=== PATIENT | female | born 1975 | race Caucasian/White ===

== ENCOUNTER 2016-11-29 23:12 | Emergency (ER) | payer OTHER ==
[~2016-11-29] VITALS: Ht 154.9 cm; Wt 96.3 kg
[2016-11-29 23:33] VITALS: BP 153/93
--- NOTE | 2016-11-30 00:37 | NUR ---
PT TAKEN TO BED 3
--- NOTE | 2016-11-30 00:40 | NUR ---
PATIENT PRESENTS TO ED WITH C/O LEFT FOOT PAIN . PT DENIES N/V/D; SKIN IS PINK/WARM/DRY; AAOX4 WITH EVEN AND STEADY GAIT; LUNGS CLEAR BL; HR EVEN AND REGULAR; PT DENIES ANY FEVER, CP, SOB, OR COUGH AT THIS TIME; PATIENT STATES PAIN OF 5/10 AT THIS TIME; VSS; PATIENT POSITIONED FOR COMFORT; HOB ELEVATED; BEDRAILS UP X2; BED DOWN. ER MD MADE AWARE OF PT STATUS.
--- NOTE | 2016-11-30 00:40 | NUR ---
Note undone in EDM - 11/30/16 at 0129 by ZULY PATIENT PRESENTS TO ED WITH C/O LEFT FOOT PAIN . PT N/V/D; SKIN IS PINK/WARM/DRY; AAOX4 WITH EVEN AND STEADY GAIT; LUNGS CLEAR BL; HR EVEN AND REGULAR; PT DENIES ANY FEVER, CP, SOB, OR COUGH AT THIS TIME; PATIENT STATES PAIN OF 5/10 AT THIS TIME; VSS; PATIENT POSITIONED FOR COMFORT; HOB ELEVATED; BEDRAILS UP X2; BED DOWN. ER MD MADE AWARE OF PT STATUS.
--- NOTE | 2016-11-30 01:09 | NUR ---
Dr. Pike evaluating patient at bedside.
[2016-11-30] MEDS ORDERED: IBUPROFEN 800 MG TAB PO ONE (01:20)
[2016-11-30 01:45] VITALS: BP 142/87
== END 2016-11-30 01:45 | disposition home or self-care (01) ==
LOC: MED 23:12
DX: S93.492A Sprain of other ligament of left ankle, initial encounter (principal); X83.8XXA Intentional self-harm by other specified means, initial encounter; Y93.89 Activity, other specified; Y92.89 Other specified places as the place of occurrence of the external cause; Y99.8 Other external cause status
CPT/HCPCS: 73610; 90471; 90715; 99284

== ENCOUNTER 2017-11-01 02:33 | Inpatient (IN) | payer BC, OTHER ==
[~2017-11-01] VITALS: Ht 165.1 cm; Wt 99.8 kg
[2017-11-01 02:34] VITALS: BP 136/84
--- NOTE | 2017-11-01 02:40 | NUR ---
PT TAKEN TO BED 12
--- NOTE | 2017-11-01 02:41 | NUR ---
PATIENT PRESENTS TO ED WITH VOMITING X45 DAYS. SKIN IS PINK/WARM/DRY; AAOX4 WITH EVEN AND STEADY GAIT; LUNGS CLEAR BL; HR EVEN AND REGULAR; PT DENIES ANY FEVER, CP, SOB, OR COUGH AT THIS TIME; PATIENT STATES PAIN OF 0/10 AT THIS TIME; VSS; PATIENT POSITIONED FOR COMFORT; HOB ELEVATED; BEDRAILS UP X1; BED DOWN. ER MD MADE AWARE OF PT STATUS.
--- NOTE | 2017-11-01 02:54 | NUR ---
Dr. Pike evaluating patient.
[2017-11-01] MEDS ORDERED: NACL 0.9% 1,000 ML IV ONE (03:00)
[2017-11-01] MEDS ORDERED: ONDANSETRON 4 MG/2 ML VIAL IVP ONE (03:00)
[2017-11-01 03:25] LABS: BASOPHILS # (AUTO) 0.1 K/uL (0.00-0.22); BASOPHILS % (AUTO) 0.9 % (0.0-2.0); EOSINOPHILS # (AUTO) 0.3 K/uL (0-0.4); EOSINOPHILS % (AUTO) 3.4 % (0.0-4.0); HEMATOCRIT 36.3 % (36-48); HEMOGLOBIN 11.6 g/dL (12.0-16.0); LYMPHOCYTES # (AUTO) 3.7 K/uL (2.5-16.5); LYMPHOCYTES % (AUTO) 36.2 % (20.5-51.1); MEAN CORPUSCULAR HEMOGLOBIN 25 pg (27-31); MEAN CORPUSCULAR HGB CONC 32 g/dL (33-37); MEAN CORPUSCULAR VOLUME 78.6 fL (80-94); MONOCYTES % (AUTO) 9.7 % (1.7-9.3); NEUTROPHILS # (AUTO) 5.1 K/uL (1.8-7.7); NEUTROPHILS % (AUTO) 49.8 % (42.2-75.2); PLATELET COUNT (AUTO) 339 K/uL (140-450); RED BLOOD CELL COUNT(AUTO) 4.61 MIL/uL (4.20-5.40); RED CELL DISTRIBUTION WIDTH 14.6 % (11.6-13.7); WHITE BLOOD COUNT (AUTO) 10.2 K/uL (4.8-10.8)
[2017-11-01 03:37] LABS: ALBUMIN 3.1 g/dL (3.4-5.0); ANION GAP 11.3 (8-16); CARBON DIOXIDE 26.5 mmol/L (21-32); CREATININE 0.8 mg/dL (0.6-1.3); TOTAL BILIRUBIN 0.2 mg/dL (0.0-1.0)
[2017-11-01 03:40] LABS: POTASSIUM 2.8 mmol/L (3.5-5.1)
--- NOTE | 2017-11-01 03:47 | NUR ---
PT TAKEN TO CT
[2017-11-01] MEDS ORDERED: POTASSIUM CHLORIDE 10 MEQ TABER PO ONE (03:50)
--- NOTE | 2017-11-01 03:58 | NUR ---
PT RETURN FROM CT
[2017-11-01] MEDS ORDERED: ACETAMINOPHEN 325 MG TAB PO PRN (04:40)
[2017-11-01] MEDS ORDERED: ONDANSETRON 4 MG/2 ML VIAL IVP PRN (04:40)
[2017-11-01] MEDS ORDERED: ORE25 PO (04:44)
[2017-11-01 05:00] VITALS: BP 115/76
--- NOTE | 2017-11-01 05:00 | NUR ---
ADMITTED A 42 F FROM ER. CAME BY HUSSAIN WITH CC OF VOMITING WITH BLOOD X 6WEEKS , AND X1 EPISODE OF BLOOD IN THE STOOL A WEEK AGO. AWAKE,ALERT AND ORIENTED X4. AMBULATORY . WITH IVF INFUSING WELL ON THE LT AC #20. CLEAR AND PATENT. SKIN INTACT . PLAN OF CARE DISCUSSED AND VERBALIZED UNDERSTANDING. ORIENTED TO HOSPITAL ROUTINES. BED ON LOWEST POSITION, CALL LIGHT PLACED WITHIN EASY REACH. WILL CONTINUE TO MONITOR.
--- NOTE | 2017-11-01 05:16 | NUR ---
Pt report given to CADEN BOSS. Transfer of care at this time.
--- NOTE | 2017-11-01 06:40 | NUR ---
PT RESTING IN BED. NO VOMITING NOTED OF THIS TIME.
--- NOTE | 2017-11-01 07:25 | NUR ---
ENDORSED PT IN STABLE CONDITION TO AM NURSE.
--- NOTE | 2017-11-01 07:30 | NUR ---
RECEIVED REPORT FROM HIDE AND SKIN FLESHING MACHINE OPERATOR NURSECADEN ABOUT THE PT. PT IS AWAKE LYING ON THE BED WITH A LEFT AC IV LINE, IN G. 20. AND A NS INFUSING AT 100ML/HR., LINE IS INTACT. PT IS ON ROOM AIR, WITH FAMILY MEMBER ON THE BEDSIDE, SIDE RAILS UP AND NO SIGN OF DISTRESS NOTED. CALL LIGHT WITHIN REACH. WILL MONITOR.
[2017-11-01 08:00] VITALS: BP 116/72
--- NOTE | 2017-11-01 08:10 | NUR ---
PT IS AWAKE, LYING ON THE BED WITH FAMILY MEMBER ON THE BEDSIDE. VITAL SIGNS TAKEN, CALL LIGHT WITHIN REACH, NO SIGN OF DISTRESS NOTED. WILL MONITOR.
[2017-11-01 08:13] LABS: FREE T4 (FREE THYROXINE) 0.97 ng/dL (0.76-1.46); MAGNESIUM 1.9 mg/dL (1.8-2.4); PHOSPHORUS 4.8 mg/dL (2.5-4.9); THYROID STIMULATING HORMONE 0.9 uIU/mL (0.34-3.74)
[2017-11-01] MEDS ORDERED: POTASSIUM CHLORIDE 40 MEQ, LIDOCAINE 1% 25 MG in NACL 0.9% 250 ML IV SCH (09:00)
[2017-11-01] MEDS: NACL 0.9% 1,000 ML IV SCH ×3 (09:00→21:39)
[2017-11-01] MEDS ORDERED: HYDROCHLOROTHIAZIDE 25 MG TAB PO SCH (09:06)
[2017-11-01] MEDS: DOCUSATE SODIUM 100 MG GELCAP PO SCH ×2 (09:37→21:10)
[2017-11-01] MEDS: HYDROcodone/APAP 7.5/325 MG 1 TAB PO PRN ×2 (09:47→19:44)
--- NOTE | 2017-11-01 09:47 | NUR ---
PT IS AWAKE AND VERBALIZED A PAIN RATE OF 6. MEDICATION GIVEN. PT TOLERATED IT. NO OTHER SIGN OF DISCOMFORT NOTED. CALL LIGHT WITHIN REACH. WILL MONITOR.
--- NOTE | 2017-11-01 09:54 | NUR ---
ASSISTED PT TO THE BATHROOM AND ASSISTED BACK TO BED. NO SIGN OF DISTRESS NOTED. MEDICATIONS GIVEN AND PT TOLERATED IT. FAMILY MEMBER AT THE BEDSIDE.
--- NOTE | 2017-11-01 11:39 | NUR ---
PATIENT HAS BEEN SCREENED AND CATEGORIZED HIGH NUTRITION RISK. PATIENT WILL BE SEEN WITHIN 1-2 DAYS OF ADMISSION. 11/01/17 - 11/02/[address]
[2017-11-01 12:00] VITALS: BP 114/70
[2017-11-01] MEDS ORDERED: fentaNYL 0.05 MG/ML VIAL ONE (14:14)
[2017-11-01] MEDS ORDERED: MIDAZOLAM 2 MG/2 ML VIAL ONE (14:15)
--- NOTE | 2017-11-01 14:15 | NUR ---
11/01/17 RD INITIAL ASSESSMENT COMPLETED PLEASE REFER TO NUTRITION ASSESSMENT UNDER CARE ACTIVITY FOR ESTIMATED NUTRITIONAL NEEDS. 1. CONTINUE NPO MEDICALLY NECESSARY 2. WHEN PT MEDICALLY STABLE TO BEGIN NUTRITION, CONSIDER ADVANCE DIET TOLERATED TO NA 2G 3. RD TO FOLLOW-UP 3-5 DAYS, MODERATE RISK ROMMEL ADAMSON RD
--- NOTE | 2017-11-01 14:15 | NUR ---
PT WAS TAKEN BY OR NURSES FOR A ESOPHAGODUODENOSCOPY PROCEDURE. PT IS AWAKE, VITAL SIGNS TAKEN AND STABLE AT THIS TIME. NO SIGN OF DISTRESS NOTED.
[2017-11-01] MEDS ORDERED: diphenhydrAMINE 50 MG/ML VIAL ONE (14:16)
--- NOTE | 2017-11-01 15:09 | NUR ---
PT WAS BROUGHT BACK TO THE ROOM FROM EGD, HIATAL HERNIA FOUND ON EGD AND BIOPSY WAS DONE. VITAL SIGN TAKEN AND NO SIGN OF DISTRESS NOTED. CALL LIGHT WITHIN REACH. WILL MONITOR.
[2017-11-01 16:00] VITALS: BP 120/74
[2017-11-01 17:14] LABS: ANION GAP 8.3 (8-16); CARBON DIOXIDE 27.9 mmol/L (21-32); CREATININE 0.8 mg/dL (0.6-1.3); POTASSIUM 3.2 mmol/L (3.5-5.1)
[2017-11-01] MEDS ORDERED: PANTOPRAZOLE 40 MG TABEC PO SCH (17:29)
[2017-11-01] MEDS ORDERED: CLARITHROMYCIN 500 MG TAB PO SCH (17:30)
[2017-11-01] MEDS ORDERED: AMOXICILLIN 500 MG CAP PO SCH (17:30)
[2017-11-01] MEDS: FERROUS SULFATE 325 MG TABEC PO SCH (17:32)
[2017-11-01] MEDS: METOCLOPRAMIDE 10 MG TAB PO SCH (17:42)
--- NOTE | 2017-11-01 19:35 | NUR ---
ENDORSED PT TO MAIL PROCESSOR NURSE. PT IS STABLE AND NO SIGN OF DISTRESS NOTED.
--- NOTE | 2017-11-01 19:40 | NUR ---
RECEIVED PT IN STABLE CONDITION FROM AM NURSE. AWAKE,ALERT AND ORIENTED X 4. MED SURG PT . AMBULATORY. WITH C/O HEADACHE. WILL MEDICATE ORDERED. HAS IVF INFUSING WELL ON THE LT AC# 20. CLEAR AND PATENT. PLAN OF CARE DISCUSSED AND VERBALIZED UNDERSTANDING. BED ON LOW POSITION, CALL LIGHT WITHIN EASY REACH. WILL CONTINUE TO MONITOR.
--- NOTE | 2017-11-01 20:44 | NUR ---
PT SLEEPING WELL AT THIS TIME. NO MORE S/S OF ANY PAIN NOTED.
[2017-11-01] MEDS ORDERED: PANTOPRAZOLE 40 MG INJ VIAL IVP SCH (21:00)
[2017-11-01] MEDS: CLARITHROMYCIN 500 MG TAB PO SCH (21:10)
[2017-11-01] MEDS: SUCRALFATE 1 GM TAB PO SCH (21:10)
--- NOTE | 2017-11-01 22:00 | NUR ---
PT ASLEEP. NO S/S OF ANY DISCOMFORT NOR PAIN NOTED.
[2017-11-01 23:45] VITALS: BP 114/66
--- NOTE | 2017-11-02 02:00 | NUR ---
MADE ROUNDS. PT SLEEPING. NO S/S FO ANY PAIN . WILL CONTINUE TO MONITOR
--- NOTE | 2017-11-02 04:00 | NUR ---
AWAKE . NO C/O ANY PAIN NOTED.
[2017-11-02] MEDS: CLARITHROMYCIN 500 MG TAB PO SCH ×2 (04:58→12:26)
--- NOTE | 2017-11-02 06:00 | NUR ---
NO STOOL DURING THE NIGHT, STOOL STILL NEEDED FOR OCCULT BLOOD. PT AWARE.
[2017-11-02 06:19] LABS: BASOPHILS # (AUTO) 0.1 K/uL (0.00-0.22); BASOPHILS % (AUTO) 0.8 % (0.0-2.0); EOSINOPHILS # (AUTO) 0.2 K/uL (0-0.4); EOSINOPHILS % (AUTO) 2.6 % (0.0-4.0); HEMATOCRIT 36.8 % (36-48); HEMOGLOBIN 11.8 g/dL (12.0-16.0); LYMPHOCYTES # (AUTO) 3.1 K/uL (2.5-16.5); LYMPHOCYTES % (AUTO) 42.2 % (20.5-51.1); MEAN CORPUSCULAR HEMOGLOBIN 25 pg (27-31); MEAN CORPUSCULAR HGB CONC 32 g/dL (33-37); MEAN CORPUSCULAR VOLUME 79.4 fL (80-94); MONOCYTES # (AUTO) 0.6 K/uL (0.8-1.0); MONOCYTES % (AUTO) 8.5 % (1.7-9.3); NEUTROPHILS # (AUTO) 3.4 K/uL (1.8-7.7); NEUTROPHILS % (AUTO) 45.9 % (42.2-75.2); PLATELET COUNT (AUTO) 310 K/uL (140-450); RED BLOOD CELL COUNT(AUTO) 4.64 MIL/uL (4.20-5.40); RED CELL DISTRIBUTION WIDTH 14.6 % (11.6-13.7); WHITE BLOOD COUNT (AUTO) 7.4 K/uL (4.8-10.8)
[2017-11-02 06:38] LABS: ANION GAP 11.5 (8-16); CARBON DIOXIDE 25.7 mmol/L (21-32); CREATININE 0.9 mg/dL (0.6-1.3); POTASSIUM 3.2 mmol/L (3.5-5.1)
[2017-11-02] MEDS: HYDROcodone/APAP 7.5/325 MG 1 TAB PO PRN (06:38)
[2017-11-02] MEDS: METOCLOPRAMIDE 10 MG TAB PO SCH ×3 (06:38→16:19)
--- NOTE | 2017-11-02 07:11 | NUR ---
ASSUMED CONTINUITY OF CARE. NO SIGNS AND SYMPTOMS OF ACUTE DISTRESS NOTICED. INITIAL ASSESSMENT DONE. KEEP COMFORTABLE ON BED. EXPLAINED DIAGNOSIS, PLAN OF CARE, PAIN MANAGEMENT TEACHING, DIET, USE OF CALL LIGHT/BED/TV/BATHROOM. VERBALIZED UNDERSTANDING. CALL LIGHT WITHIN REACH.
--- NOTE | 2017-11-02 07:15 | NUR ---
ENDORSED PT IN STABLE CONDITION TO AM NURSE.
[2017-11-02] MEDS ORDERED: PANTOPRAZOLE 40 MG TABEC PO SCH (07:30)
[2017-11-02 08:00] VITALS: BP 105/62
--- NOTE | 2017-11-02 08:09 | NUR ---
Patient's Plan of Care was discussed and reviewed with PAVER OPERATOR: OTIS FARMER
[2017-11-02] MEDS: FERROUS SULFATE 325 MG TABEC PO SCH ×2 (08:31→16:19)
[2017-11-02] MEDS: SUCRALFATE 1 GM TAB PO SCH (08:32)
[2017-11-02] MEDS: DOCUSATE SODIUM 100 MG GELCAP PO SCH (08:32)
[2017-11-02] MEDS: AMOXICILLIN 500 MG CAP PO SCH ×3 (08:32→16:19)
[2017-11-02] MEDS ORDERED: HYDROCHLOROTHIAZIDE 25 MG TAB PO SCH (09:00)
[2017-11-02] MEDS ORDERED: SENNA 8.6 MG TAB PO SCH (09:00)
[2017-11-02] MEDS ORDERED: FERROUS SULFATE 325 MG TABEC PO SCH (09:15)
[2017-11-02] MEDS ORDERED: ASCORBIC ACID 500 MG TAB PO SCH ×2 (09:15→10:00)
[2017-11-02] MEDS ORDERED: CALCIUM CARB/VIT-D 500 MG/200 IU 1 TAB PO SCH ×2 (09:15→10:30)
[2017-11-02] MEDS ORDERED: FERRIC GLUCONATE 125 MG in NACL 0.9% 100 ML IV SCH (09:15)
[2017-11-02] MEDS ORDERED: POTASSIUM CHLORIDE 20% 40 MEQ/15 ML UDC PO SCH (10:00)
[2017-11-02] MEDS ORDERED: AMOX500C25 PO (11:53)
[2017-11-02] MEDS ORDERED: VITC500 PO (11:53)
[2017-11-02] MEDS ORDERED: SENN-89 PO (11:53)
[2017-11-02] MEDS ORDERED: FER325 PO (11:53)
[2017-11-02] MEDS ORDERED: METO10TA98 PO (11:53)
[2017-11-02] MEDS ORDERED: CALC-846 PO (11:53)
[2017-11-02] MEDS ORDERED: CLAR500T PO (11:53)
[2017-11-02] MEDS ORDERED: SUCR1TAB56 PO (11:53)
[2017-11-02] MEDS ORDERED: PANT40EC28 PO (11:53)
[2017-11-02 12:00] VITALS: BP 125/76
--- NOTE | 2017-11-02 14:59 | NUR ---
LATE ENTRY 11/01/17 INITIAL REVIEW DONE 11/02/17 CHART REVIEWED.
--- NOTE | 2017-11-02 15:35 | NUR ---
[employer] TECH CAME FOR PT. US ABD. INFORMED DR. VIZCAINO AND CHARGE NURSE FRANCESCO CASTRO -GERA.
[2017-11-02 16:00] VITALS: BP 125/80
--- NOTE | 2017-11-02 16:32 | NUR ---
DR. KHAN CAME, REVIEWED PT. CHART AND SEEN PT.. INFORMED DR. KHAN THAT PT. HAD US ABD STARTED AT 1635.
--- NOTE | 2017-11-02 19:15 | NUR ---
D/C HOME VIA WC, ACCOMPANIED BY PT. FAMILY MEMBER. AWAKE, ALERT, AND ORIENTED X4. SPEECH CLEAR. NO C/O PAIN. NO SOB, NOTED. IN STABLE CONDITION. INFORMED CHARGE NURSE FRANCESCO BOYD.
== END 2017-11-02 19:15 | disposition home or self-care (01) | DRG 378 ==
LOC: MED 02:33 → MTU 04:30
PROVIDERS: ADMIT Family Medicine Sports Medicine; ATTEND Family Medicine Sports Medicine
PROC: 0DB68ZX Excision of Stomach, Via Natural or Artificial Opening Endoscopic, Diagnostic (ICD-10-PCS; principal; 2017-11-01 14:15)
DX: K29.01 Acute gastritis with bleeding (principal); E44.0 Moderate protein-calorie malnutrition; K22.10 Ulcer of esophagus without bleeding; K44.9 Diaphragmatic hernia without obstruction or gangrene; K92.0 Hematemesis; E83.51 Hypocalcemia; D64.9 Anemia, unspecified; E87.6 Hypokalemia; E66.9 Obesity, unspecified; I10 Essential (primary) hypertension; K57.90 Diverticulosis of intestine, part unspecified, without perforation or abscess without bleeding; D50.9 Iron deficiency anemia, unspecified; Z68.36 Body mass index [BMI] 36.0-36.9, adult
CPT/HCPCS: 36415; 71045; 76705; 80048; 80053; 81025; 82140; 82150; 83036; 83690; 83735; 83880; 84100; 84439; 84443; 84484; 85025; 85610; 85730; 86677; 87081; 93005; 96361; 96374; 99285; J1200; J2001; J2250; J2405; J2916; J3010; J3480; J7030; J8597; Q0092